=== PATIENT | female | born 1955 | race Caucasian/White ===

== ENCOUNTER 2018-06-01 12:38 | Emergency (ER) | payer MEDICAID ==
[~2018-06-01] VITALS: Ht 167.6 cm; Wt 64.5 kg
[2018-06-01] MEDS ORDERED: HYDRALAZINE 20MG/ML VIAL IV ONE (13:00)
[2018-06-01] MEDS ORDERED: ASPIRIN 81MG TABLET PO ONE (13:00)
[2018-06-01] MEDS ORDERED: NITROGLYCERIN 0.4MG TABLET SL SL PRN (13:00)
[2018-06-01 14:40] LABS: BASOPHILS % 0.3 % (0.0-2.0); EOSINOPHILS % 1.2 % (0.0-5.0); HEMATOCRIT. 39.6 % (36.0-48.0); HEMOGLOBIN. 13.6 g/dL (12.0-16.0); LYMPHOCYTES % 35.6 % (20.0-50.0); MEAN CORPUSCULAR VOLUME 87.4 fL (81.0-99.0); MEAN PLATELET VOLUME 8.5 fl (7.4-10.4); MONOCYTES % 7.7 % (2.0-8.0); NEUTROPHILS % 55.2 % (40.0-76.0); PLATELET 210 x1000/uL (130-400); RED BLOOD CELL COUNT 4.53 mill/uL (4.2-5.4); RED CELL DISTRIBUTION WIDTH 12.8 % (11.6-14.6)
[2018-06-01 14:50] LABS: CHLORIDE 107 mEq/L (98-107)
[2018-06-01] MEDS ORDERED: MORPHINE SULFATE 4 MG/ML CPJ (NOT FOR IM USE) IV ONE (15:45)
[2018-06-01 18:00] VITALS: BP 154/79
== END 2018-06-01 18:02 | disposition left against medical advice (07) ==
LOC: ER 13:14 → EDBEDREQTM 15:58 → EDBEDREQ 15:58 → ER 18:02 → CANBEDREQ 21:31
DX: R07.89 Other chest pain (principal); I20.0 Unstable angina; I16.0 Hypertensive urgency; R51 Headache; I10 Essential (primary) hypertension
CPT/HCPCS: 36415; 70450; 71045; 80053; 83880; 84484; 85025; 93005; 96374; 96375; 99285; J0360; J2270